=== PATIENT | male | born 1940 | race Caucasian/White ===

== ENCOUNTER 2017-01-11 12:02 | Emergency (ER) | payer OTHER ==
[2017-01-11 12:15] VITALS: RESP 16
--- NOTE | 2017-01-11 12:35 | CPEKG ---
Heart Rate: 62 RR Interval: 968 P-R Interval: 168 QRSD Interval: 100 QT Interval: 388 QTC Interval: 394 P [place]: 84 QRS [place]: 19 T Wave [place]: 12 EKG Severity - NORMAL ECG - EKG Impression: SINUS RHYTHM Electronically Signed By: Dalia Mg 11-Jan-2017 15:03:27
[2017-01-11] MEDS ORDERED: IPRATROPIUM/ALBUTEROL 3 ML DEYVIAL IH ONE (12:40)
--- NOTE | 2017-01-11 12:42 | EDPHY ---
H & P Stated Complaint: URI sxs;recent travel to [facility]. [place]rived back in [place] yesterday Time Seen by Provider: 01/11/17 12:09 HPI/ROS: CHIEF COMPLAINT: Cough, dyspnea HISTORY OF PRESENT ILLNESS: The patient is a 76 y/o male arriving with his from his PCP's office complaining of a cough, dyspnea, and fatigue for the last two weeks. He has been in [place] for the last month and reports he is up-to-date on travel vaccinations. He initially noticed fatigue and dyspnea and eventually developed a productive cough with yellow sputum. He took a course of what sounds like azithromycin, which improved his symptoms for awhile, but he started to feel poor again about 3 days ago when he began to develop a productive cough again. He returned to [place] yesterday after 58 hours of travel. He was evaluated by his PCP this morning, who referred him to the ED for continuing dyspnea and cough. Associated with subjective fever. He denies prior history of pneumonia and is a nonsmoker. He also notes he's had a 20-pound weight loss since starting his trip in [facility], which he attributes to extreme exercise and minimal food availability. He denies decreased appetite. REVIEW OF SYSTEMS: Eyes: No visual changes ENT: No sore throat Respiratory: See HPI Cardiac: No chest pain Gastrointestinal: No nausea, no vomiting, no abdominal pain Genitourinary: No hematuria, no dysuria Musculoskeletal: No leg pain or swelling Skin: No rash Neurological: No headache, no numbness, no weakness Psychiatric: No depression - Personal History Current Tetanus Diphtheria and Acellular Pertussis (TDAP): Yes - Medical/Surgical History PMH: Denies. Hx Asthma: No Hx Chronic Respiratory Disease: No Hx Diabetes: No Hx Cardiac Disease: No Hx Renal Disease: No Hx Cirrhosis: No Hx Alcoholism: No Hx HIV/AIDS: No Hx Splenectomy or Spleen Trauma: No Other PMH: retinal sx, APPY - Social History Smoking Status: Never smoked Additional Social History: at bedside. Nonsmoker. Recently returned from 4-week trip in [facility]. - Physical Exam Exam: General Appearance: Alert, nontoxic-appearing Eyes: Pupils equal and round, no conjunctival pallor or injection ENT, Mouth: Mucous membranes moist Neck: Normal inspection Respiratory: Left upper lung field-end inspiratory wheezing Cardiovascular: Regular rate and rhythm Gastrointestinal: Abdomen is soft and non- tender Neurological: A&O, nonfocal, normal gait Skin: Warm and dry, no rash Extremities: Nontender, no pedal edema Psychiatric: Mood and affect normal Constitutional: Initial Vital Signs Temperature (C) 37 C 01/11/17 12:12 Heart Rate 66 01/11/17 12:12 Respiratory Rate 16 01/11/17 12:12 Blood Pressure 131/73 H 01/11/17 12:12 O2 Sat (%) 99 01/11/17 12:12 O2 Delivery Mode Room Air Allergies/Adverse Reactions: No Known Allergies Allergy (Verified 01/11/17 12:11) Home Medications: Medication Instructions Recorded levOFLOXACIN [levAQUIN (*)] 750 mg PO DAILY #10 tab 01/11/17 Medical Decision Making - Diagnostics Imaging Results: Chest x-ray independently reviewed by me reveals a right lower lobe infiltrate. CT pulmonary angiogram read by the radiologist reveals multifocal pneumonia. No evidence of pulmonary embolism. Imaging: Discussed imaging studies w/ call or contact centre operator Radiologist, I viewed and interpreted images myself ED Course/Re-evaluation: This is a 76 y/o male with no documented health conditions who presents with a 2 -week history of dyspnea, cough, and fatigue that began while traveling in [place]. His symptoms temporarily improved with azithromycin, but have returned over the last 3 days. He has left upper lobe wheezes on exam, but otherwise has no remarkable findings. His vitals are WNL. Plan for IV, labs, EKG, and chest x- ray. Duo neb administered. Chest x-ray shows RLL infiltrate. Due to recent travel and SOB, D-dimer ordered. D-dimer is elevated. I've recommended a chest CTA to evaluate for PE. He agrees to this imaging. CT pulmonary angiogram read by Dr. Jones reveals no evidence of pulmonary embolism. Multi focal pneumonia present. Discussed with the patient and the patient's . He would like to go home. O2 sat 94% on RA and VS normal. I feel that he is appropriate patient for outpatient treatment of pneumonia. He will be discharged home on Levaquin with standard pneumonia care instructions. Recommended followup with his PCP for unimproved symptoms over the next week. Return precautions given. He is comfortable with this plan. Differential Diagnosis: Differential diagnosis includes though it is not limited to pneumonia, pneumothorax, pulmonary embolism, aortic dissection, pericarditis, severe sepsis. - Data Points Laboratory Results: Laboratory Results 01/11/17 12:45 01/11/17 12:45 Medications Given: Discontinued Medications Albuterol/Ipratropium (Duoneb) 3 ml IH EDNOW ONE Stop: 01/11/17 12:41 Last Admin: 01/11/17 12:44 Dose: 3 ml Levofloxacin (Levaquin) 750 mg PO EDNOW ONE PRN Reason: Protocol Stop: 01/11/17 15:16 Last Admin: 01/11/17 15:22 Dose: 750 mg Departure - Departure Disposition: Home, Routine, Self-Care Clinical Impression: Pneumonia Qualifiers: Pneumonia type: due to unspecified organism Laterality: bilateral Lung location : unspecified part of lung Qualified Code(s): J18.9 - Pneumonia, unspecified organism Condition: Good Instructions: Levofloxacin (By mouth), Pneumonia (ED) Additional Instructions: 1. Take Levaquin as prescribed. Be sure to use entire prescription even if you feel better. Do not perform strenuous exercise while on this medication as it can cause tendon injury. 2. Use 650mg Tylenol every 4-6 hours as needed for fever or pain over the next few days. 3. Follow up with your primary care provider for unimproved symptoms over the next week. 4. Return to the ED for severe pain, worsening shortness of breath, uncontrollable fever, or other worsening of condition. Referrals: Pancho Green MD [Primary Care Provider] - As per Instructions Prescriptions: levOFLOXACIN [levAQUIN (*)] 750 mg PO DAILY #10 tab Report Scribed for: Dalia Mg Report Scribed by: Kathleen Ponce Date of Report: 01/11/17 Time of Report: 12:43 Physician Review and Approval Statement: 01/11/17 12:43 Portions of this note were transcribed by a medical collections representative. I personally performed a history, physical exam, medical decision making, and confirmed accuracy of information the transcribed note.
[2017-01-11 13:12] LABS: % IMMATURE GRANULYOCYTES 0.3 % (0.0-1.1); ABSOLUTE IMMATURE GRANULOCYTES 0.03 10^3/uL (0.00-0.10); ADD DIFF? NO; ADD MORPH? NO; ADD SCAN? NO; ATYPICAL LYMPHOCYTE FLAG 20 (0-99); FRAGMENT RBC FLAG 0 (0-99); HEMATOCRIT 40.5 % (40.0-51.0); HEMOGLOBIN 13.6 g/dL (13.7-17.5); LEFT SHIFT FLG 10 (0-99); LIPEMIA HEMOLYSIS FLAG 80 (0-99); MEAN CELL HEMOGLOBIN 29.6 pg (27.9-34.1); MEAN CELL HEMOGLOBIN CONCENTR. 33.6 g/dL (32.4-36.7); MEAN CELL VOLUME 88.2 fL (81.5-99.8); MEAN PLATELET VOLUME 10.8 fL (8.7-11.7); PLATELET CLUMPS FLAG 0 (0-99); PLATELET COUNT 243 10^3/uL (150-400); RED BLOOD CELL COUNT 4.59 10^6/uL (4.40-6.38); RED CELL DISTRIBUTION WIDTH 13.4 % (11.5-15.2)
[2017-01-11 13:22] LABS: INR 1.12 (0.83-1.16); PROTIME(PATIENT) 14.3 SEC (12.0-15.0)
[2017-01-11 13:23] LABS: APTT 26.9 SEC (23.0-38.0)
[2017-01-11 13:50] LABS: ANION GAP 14 mEq/L (8-16); BILIRUBIN,TOTAL 0.7 mg/dL (0.1-1.4); CALCIUM 8.9 mg/dL (8.5-10.4); CARBON DIOXIDE 21 mEq/l (22-31); CHLORIDE 103 mEq/L (97-110); GLOMERULAR FILTRATION RATE > 60; GLUCOSE 85 mg/dL (70-100); POTASSIUM 4.1 mEq/L (3.5-5.2); SODIUM 138 mEq/L (134-144)
[2017-01-11] MEDS ORDERED: IOPAMIDOL (ISOVUE 370) 100 ML BTL IV ONE (14:27)
[2017-01-11 15:37] VITALS: BP 114/59; PULSE 71; TEMP 99.7; O2SAT 94
== END 2017-01-11 15:35 | disposition home or self-care (01) ==
DX: J18.9 Pneumonia, unspecified organism (principal)
CPT/HCPCS: 71020; 71275; 93005; 99285; Q9967

== ENCOUNTER → 2017-05-06 | Outpatient (CLI) | payer OTHER | LOC: FIMAGING 09:52 | PROVIDERS: ATTEND Internal Medicine Pulmonary Disease | DX: J18.9 Pneumonia, unspecified organism (principal); J21.9 Acute bronchiolitis, unspecified; I25.10 Atherosclerotic heart disease of native coronary artery without angina pectoris ==

== ENCOUNTER 2018-06-27 06:32 | Day surgery (SDC) | payer OTHER ==
[2018-06-27] MEDS ORDERED: NS 1,000 ML IV ONE (06:39)
[2018-06-27] MEDS ORDERED: diphenhydrAMINE 25 MG CAP PO ONE ×2 (06:39→06:54)
[2018-06-27] MEDS ORDERED: ASPIRIN EC 325 MG TAB PO ONE ×2 (06:39→06:54)
[2018-06-27] MEDS ORDERED: DIAZEPAM 5 MG TAB PO ONE (06:39)
[2018-06-27] MEDS ORDERED: FAMOTIDINE 20 MG TAB PO ONE (06:39)
[2018-06-27] MEDS ORDERED: DIAZEPAM 5 MG TAB ONE (06:54)
[2018-06-27] MEDS ORDERED: FAMOTIDINE 20 MG TAB ONE (06:54)
[2018-06-27 07:26] LABS: PLATELET COUNT 232 10^3/uL (150-400)
[2018-06-27 07:45] LABS: INR 0.99 (0.83-1.16); PROTIME(PATIENT) 13.3 SEC (12.0-15.0)
[2018-06-27] MEDS ORDERED: LIDOCAINE 1% 300 MG/30 ML SDV ONE (07:45)
[2018-06-27] MEDS ORDERED: fentaNYL 100 MCG/2 ML INJ ONE (07:46)
[2018-06-27] MEDS ORDERED: MIDAZOLAM 2 MG/2 ML VIAL ONE (07:46)
[2018-06-27] MEDS ORDERED: IOPAMIDOL (ISOVUE-370) 150 ML BTL IV ONE (07:47)
--- NOTE | 2018-06-27 08:36 | PDHPUP ---
History & Physical Update H&P update statement: This history and physical update is based on an assessment of the patient which was completed after admission or registration (within 24 hours), but prior to the surgery/procedure. H&P update: H&P reviewed & patient examined, no change in patient's condition since H&P completed
--- NOTE | 2018-06-27 08:36 | PDPROPOC ---
Sedation Plan of Care Sedation Plan of Care: vital signs stable, mental status noted, patient educated of risks, benefits, alternatives, patient can tolerate sedation ASA Classification: ASA 2 Planned drugs: fentanyl, midazolam Mallampati Score: Class 2 Mallampati Reference Image: Patient passed 3-3-2 rule?: Yes
--- NOTE | 2018-06-27 10:10 | CPIP ---
DATE OF PROCEDURE: 06/27/2018 PROCEDURE: 1. Coronary angiography. 2. Left ventriculography. INDICATION: 1. Nonsustained ventricular tachycardia on stress testing number. 2. Dyspnea on exertion concerning for an anginal equivalent. ACCESS: Patient was prepped and draped in sterile fashion. 1% lidocaine was used to anesthetize the right inguinal region. A 6-Samoan introducer sheath was placed selectively into the right common fe moral artery via modified Seldinger technique. CORONARY ANGIOGRAPHY: A 6-Samoan JL4 was advanced to left main coronary artery and images obtained. The left main coronary artery bifurcated into an LAD and circumflex coronary arteries. The left mikael n coronary artery appeared normal. The left anterior descending coronary artery is diffusely disease d in the proximal mid segments. There was no stenosis greater than 20%. In the distal left anterior descending coronary artery, there was a single discrete total occlusion. The distal vessel is being collateralized via right to left collaterals. The left anterior descending coronary artery gave ris e to 3 diagonal branches. There is no significant disease involving the diagonal branches. The circ umflex coronary artery is a large vessel, but is nondominant. Circumflex coronary artery has a singl e discrete 50% to 60% stenosis in the mid vessel. A 6-Samoan JR4 was advanced to the right coronary artery and images obtained. The right coronary artery is dominant. The right coronary artery has a single discrete 70% stenosis in the midvessel. LEFT VENTRICULOGRAPHY: A 6-Samoan pigtail catheter was advanced in the left ventricle and images obt ained. Left ventricle was normal in size, had normal systolic function. Estimated ejection fraction 65%. COMPLICATIONS: None. CONCLUSIONS: 1. Three-vessel coronary artery disease. 2. Normal left ventricular systolic function. 3. Plan is for surgical evaluation. /[id number]/MODL
--- NOTE | 2018-06-27 16:25 | CPEKG ---
Test Reason : OPEN Blood Pressure : / mmHG Vent. Rate : 062 BPM Atrial Rate : 061 BPM P-R Int : 169 ms QRS Dur : 105 ms QT Int : 425 ms P-R-T Axes : 083 020 -16 degrees QTc Int : 432 ms Sinus rhythm Abnormal R-wave progression, early transition Borderline T abnormalities, inferior leads Confirmed by Elizabeth Gusman ([id number]) on 06/27/2018 4:24:52 PM Referred By: Confirmed By:Elizabeth Gusman
== END 2018-06-27 12:58 | disposition home or self-care (01) ==
LOC: FCATH 06:32
PROVIDERS: ATTEND Internal Medicine Cardiovascular Disease
PROC: B2111ZZ Fluoroscopy of Multiple Coronary Arteries using Low Osmolar Contrast (ICD-10-PCS; principal; 2018-06-27)
PROC: 4A023N7 Measurement of Cardiac Sampling and Pressure, Left Heart, Percutaneous Approach (ICD-10-PCS; principal; 2018-06-27)
PROC: B2151ZZ Fluoroscopy of Left Heart using Low Osmolar Contrast (ICD-10-PCS; principal; 2018-06-27)
DX: I25.10 Atherosclerotic heart disease of native coronary artery without angina pectoris (principal)
CPT/HCPCS: C1760; J1644; J2250; J3010; Q9967

== ENCOUNTER 2018-08-11 11:46 | Observation (INO) | payer OTHER ==
[2018-08-11] MEDS ORDERED: ASPIRIN 81 MG CHEWABLE TAB PO ONE (12:17)
[2018-08-11] MEDS ORDERED: IOPAMIDOL (ISOVUE 370) 100 ML BTL IV ONE (13:03)
[2018-08-11] MEDS ORDERED: NITROGLYCERIN 2% 1 GM PACKET TP ONE (13:52)
[2018-08-11] MEDS ORDERED: FUROSEMIDE 20 MG/2 ML VIAL IVP ONE (13:52)
--- NOTE | 2018-08-11 15:02 | EDPHY ---
H & P Stated Complaint: bilateral leg swelling 5th, recent travel to [facility] Time Seen by Provider: 08/11/18 11:50 HPI/ROS: This patient reports a 3 week history of dyspnea since starting beta-blockers- initially Coreg, changed after few days to Bystolic due to dyspnea and Coreg. However, he reports that the symptoms have steadily worsened despite the change in medications. He traveled to [facility] since starting the beta-daja and on return ride back from [facility] 2 days ago noticed bilateral leg edema that was new for him. He reports this is quite significant in terms of the bilateral leg swelling but improved when he propped his legs up on pillows overnight only to recur once he stood up again. In the past, Despite prolonged travel the past he never had significant leg edema. He also reported increase in the dyspnea at baseline. He also reports worsening of dyspnea on exertion including in recent days mild exertion such as walking up stairs which is normally of no difficulty to this patient. He presented to Dr. Macedo cardiology office this morning with the symptoms and was encouraged to check in the emergency department for further evaluation. ROS: Constitutional: No fevers or chills. He denies significant fatigue despite the edema. HEENT: No complaints Pulmonary: Dyspnea as per HPI. No significant coughing. Cardiovascular: Denies any heart palpitations. No chest pain. No paroxysmal nocturnal dyspnea. Significant reduction exercise tolerance with dyspnea on exertion as noted in HPI. While he has bilateral leg swelling he denies any discomfort in the left leg. He does report mild right medial thigh discomfort over the past 24 hr. He attributes this to heavy lifting of luggage over the past 2 weeks from travel. GI: No nausea. No abdominal pain. No dark tarry stools or bloody stools. : No complaints Integumentary: No diaphoresis or pallor Neuro: No complaints 10 point review of symptoms is performed and otherwise negative with exception of pertinent positives and negatives listed in HPI and ROS Source: Patient Exam Limitations: No limitations - Medical/Surgical History Hx Asthma: No Hx Chronic Respiratory Disease: No Hx Diabetes: No Hx Cardiac Disease: No Hx Renal Disease: No Hx Cirrhosis: No Hx Alcoholism: No Hx HIV/AIDS: No Hx Splenectomy or Spleen Trauma: No Other PMH: cardiac murmur, retinal sx, APPY - Social History Smoking Status: Never smoked Alcohol Use: Occasionally Drug Use: None Additional Social History: Just return from travel to [facility] - Physical Exam Exam: General Appearance: Alert, no distress. Eyes: Pupils equal and round no pallor or injection. ENT, Mouth: Mucous membranes moist. Respiratory: Diminished breath sounds at the bases bilaterally. No rales or rhonchi appreciated. Cardiovascular: Regular rate and rhythm. No murmur gallop or rub is appreciated. Minimal JVD is present. He has 1 to 2+ pitting edema bilateral lower extremities. Gastrointestinal: Abdomen is soft and nontender, no masses, bowel sounds normal. Neurological: GCS 15 with no focal deficits. Skin: Warm and dry, no rashes. Musculoskeletal: Neck is supple nontender. Extremities are symmetrical, full range of motion. Psychiatric: Mood and affect are normal. DIFFERENTIAL DIAGNOSIS: After history and physical exam differential diagnosis was considered for CHF, DVT, pulmonary embolism, myocardial ischemic disease, metabolic disarray, UTI, renal failure Constitutional: Initial Vital Signs Temperature (C) 36.2 C 08/11/18 11:57 Heart Rate 45 L 08/11/18 11:57 Respiratory Rate 16 08/11/18 11:57 Blood Pressure 142/67 H 08/11/18 11:57 O2 Sat (%) 95 08/11/18 11:57 O2 Delivery Mode Room Air O2 (L/minute) 2 Allergies/Adverse Reactions: No Known Allergies Allergy (Verified 08/11/18 11:57) Home Medications: Medication Instructions Recorded Aspirin 81 mg PO DAILY 06/27/18 Atorvastatin Calcium 20 mg PO 06/27/18 Calcium 600 mg PO DAILY 06/27/18 Fish Oil [place]-3 Softgel 2 tab PO DAILY 06/27/18 Multivitamin 1 tab PO DAILY 06/27/18 Tobramycin 0.3% 1 drops LEFTEYE Q4 PRN 06/27/18 Vitamin D3 2,000 iunits PO DAILY 06/27/18 Bystolic 08/11/18 Medical Decision Making - Diagnostics EKG Interpretation: 12 lead EKG performed at 12 indication dyspnea rule out coronary syndrome or other Sinus bradycardia 43 Intervals: Normal throughout [place]: P of 84, QRS of 23, T of -1 ST segments: No acute ST abnormalities appreciated. Overall assessment sinus bradycardia with 1 PVC and early transition in R-wave progression anteriorly. Imaging Results: Imaging Impressions Chest/Thorax CTA 08/11/18 12:56 Impression: 1. There is no CT evidence of pulmonary artery thromboembolic disease. 2. Moderate right and small left pleural effusions. 3. Lingular and right middle lobe bronchiectasis, with some areas of mucous plugging and some mild chronic atelectasis. There is also some more focal "tree- in-bud" nodularity (for example, in the medial lingula), which may reflect SHERIN ( although is nonspecific). 4. Old granulomatous disease of the spleen. 5. Cardiomegaly with LAD and RCA atherosclerotic calcific plaque. Findings were discussed with PHILLIP LEON MD at 13:47, on 08/11/2018. Extremity Venous Study 08/11/18 13:52 Impression: No deep venous thrombosis right leg. Findings and recommendations discussed with Emergency Department physician, PHILLIP LEON at 14:52 hour, 08/11/2018. Final report concurs with initial preliminary interpretation. Imaging: Discussed imaging studies w/ call box wirer Radiologist ED Course/Re-evaluation: IV, monitor Aspirin [address] results consistent with clinical impression of CHF, patient treated with IV Lasix 20 mg and nitroglycerin paste with brisk diuresis. Studies: CBC is normal, basic metabolic panel is normal, troponin is normal, D- dimer was mildly elevated. His BNP is elevated greater than 1800. I spoke with Dr. Macedo, slab stripper who is familiar with this patient's most recent cardiac catheterization which showed multi vessel coronary artery disease including a significant LAD lesion. Given this background coronary disease with new onset CHF we feel the patient warrants admission. The patient is in agreement with this plan. I also spoke with Dr. Luo, the patient's personal slab stripper who also agrees with the plan will consult, requesting hospitalist as primary admitting physician. I spoke with Dr. Adi Santos, hospitalist accepts the patient for admission to [facility]. - Data Points Laboratory Results: 08/11/18 08/11/18 08/11/18 12:12 12:12 12:02 POC Sodium 144 mEq/L mEq/L (135-145) POC Potassium 3.5 mEq/L mEq/L (3.3-5.0) POC Chloride 107.0 mEq/L mEq/L (97-110) POC Total CO2 26 mEq/L mEq/L (22-31) POC BUN 13 mg/dL mg/dL (7-23) POC Creatinine 0.7 mg/dL mg/dL (0.7-1.3) POC Glucose 82 mg/dL mg/dL (70-100) POC Calcium 9.2 mg/dL mg/dL (8.5-10.4) POC Troponin I 0.02 ng/mL ng/mL (0.00-0.08) NT-Pro-B Natriuret Pep 1850 pg/mL H pg/mL (0-450) Medications Given: Discontinued Medications Aspirin (Aspirin) 324 mg PO EDNOW ONE Stop: 08/11/18 12:18 Last Admin: 08/11/18 12:24 Dose: 324 mg Furosemide (Lasix Injection) 20 mg IVP EDNOW ONE Stop: 08/11/18 13:53 Last Admin: 08/11/18 14:02 Dose: 20 mg Nitroglycerin (Nitro-Bid 2%) 0.5 inch TP EDNOW ONE Stop: 08/11/18 13:53 Last Admin: 08/11/18 14:02 Dose: 0.5 inch Point of Care Test Results: CBC CBC Collection Date 08/11/18 CBC Collection Time 12:02 WBC 6.03 RBC 4.73 HGB 13.7 HCT 43.4 PLT 179 Neut # 4.03 Neut 66.7 LYMPH # 1.09 LYMPH 18.1 MCV 91.8 Chemistry 08/11/18 08/11/18 12:12 12:12 POC Sodium 144 mEq/L mEq/L (135-145) POC Potassium 3.5 mEq/L mEq/L (3.3-5.0) POC Chloride 107.0 mEq/L mEq/L (97-110) POC Total CO2 26 mEq/L mEq/L (22-31) POC BUN 13 mg/dL mg/dL (7-23) POC Creatinine 0.7 mg/dL mg/dL (0.7-1.3) POC Glucose 82 mg/dL mg/dL (70-100) POC Calcium 9.2 mg/dL mg/dL (8.5-10.4) POC Troponin I 0.02 ng/mL ng/mL (0.00-0.08) D-Dimer D-Dimer Collection Date 08/11/18 D-Dimer Collection Time 12:02 D-Dimer (ng/ml) 489 Departure - Departure Disposition: [facility] Inpatient Acute Clinical Impression: New onset of congestive heart failure Condition: Fair Referrals: Pancho Green MD [Primary Care Provider] - As per Instructions
[2018-08-11] MEDS ORDERED: ONDANSETRON DISINTEGRATING 4 MG TAB PO PRN (15:32)
[2018-08-11] MEDS ORDERED: ACETAMINOPHEN 325 MG TAB PO PRN (15:32)
[2018-08-11] MEDS ORDERED: ONDANSETRON 4 MG/2 ML VIAL IVP PRN (15:32)
--- NOTE | 2018-08-11 17:51 | PDGENHP ---
History and Physical - Chief Complaint CLARK - History of Present Illness Tae Camarena is a 77 yo M with a hx of CAD who presents to [facility] for CLARK and b/l LE swelling. Patient reports that he has been having worsening CLARK for approximately the last 3 weeks since starting a beta-arben. He follows with Dr. Luo as an outpatient and was originally prescribed Coreg which was then changed to Bystolic after complaining of dyspnea. He denies any significant improvement in CLARK since change in medications. He denies any cough, wheezing, f/c. He notes that he will have SOB with small exertion including walking up stairs which he can normally tolerate. He then traveled to [facility] and returned about 2 days ago when he noticed significant b/l LE edema. He elevated them on pillows overnight with some improvement initally then worsening with standing. He denies any chest pain, d/c, palpitations. He does report some lightheadedness and dizziness. He was seen in Cardiology clinic this morning by Dr. Macedo who recommended patient present to ED. In the PAULA, patient was hemodynamically stable with HR in the 40's. CTA chest was performed due to elevated d-dimer and recent travel hx which showed b/l pleural effusions. Patient was given 20 mg IVP Lasix in ED. History Information - Allergies/Home Medication List Allergies/Adverse Reactions: No Known Allergies Allergy (Verified 08/11/18 11:57) Home Medications: Aspirin 81 mg PO DAILY 06/27/18 [Last Taken 06/26/18 08:00] Atorvastatin Calcium 20 mg PO 06/27/18 [Last Taken Unknown] Calcium 600 mg PO DAILY 06/27/18 [Last Taken 06/26/18 08:00] Fish Oil [place]-3 Softgel 2 tab PO DAILY 06/27/18 [Last Taken 06/26/18 08:00] Multivitamin 1 tab PO DAILY 06/27/18 [Last Taken 06/26/18 08:00] Tobramycin 0.3% 1 drops LEFTEYE Q4 PRN 06/27/18 [Last Taken 06/19/18 08:00] Vitamin D3 2,000 iunits PO DAILY 06/27/18 [Last Taken 06/26/18 08:00] Bystolic 08/11/18 [Last Taken Unknown] I have personally reviewed and updated: family history, medical history, social history, surgical history - Past Medical History coronary artery disease - Surgical History Reports: no pertinent surgical hx - Family History Positive for: non-pertinent - Social History Smoking Status: Never smoked Alcohol Use: Occasionally Drug Use: None Review of Systems Review of Systems: ROS: 10pt was reviewed & negative except for what was stated in HPI & below Physical Exam Physical Exam: Temp Pulse Resp BP Pulse Ox 36.4 C 48 L 15 97/71 L 96 08/11/18 14:44 08/11/18 17:19 08/11/18 17:19 08/11/18 17:19 08/11/18 17:19 Constitutional: no apparent distress Eyes: PERRL Ears, Nose, Mouth, Throat: moist mucous membranes Cardiovascular: regular rate and rhythym Respiratory: no respiratory distress, inspiratory crackles Gastrointestinal: soft, non-tender abdomen Musculoskeletal: full muscle strength Neurologic: AAOx3 Psychiatric: interacting appropriately Lab Data & Imaging Review POC Sodium 144 mEq/L (135-145) 08/11/18 12:12 POC Potassium 3.5 mEq/L (3.3-5.0) 08/11/18 12:12 POC Chloride 107.0 mEq/L (97-110) 08/11/18 12:12 POC Total CO2 26 mEq/L (22-31) 08/11/18 12:12 POC BUN 13 mg/dL (7-23) 08/11/18 12:12 POC Creatinine 0.7 mg/dL (0.7-1.3) 08/11/18 12:12 POC Glucose 82 mg/dL (70-100) 08/11/18 12:12 POC Calcium 9.2 mg/dL (8.5-10.4) 08/11/18 12:12 POC Troponin I 0.02 ng/mL (0.00-0.08) 08/11/18 12:12 NT-Pro-B Natriuret Pep 1850 pg/mL (0-450) H 08/11/18 12:02 Assessment & Plan Assessment: Acute Congestive Heart Failure Exacerbation - Reports 3 weeks CLARK, recent b/l LE edema with hx of multivessel CAD - BNP elevated to 1850, CTA showing b/l pleural effsions R>L on admission, cardiomegaly - S/p 20 mg IVP Lasix in ED, will continue 20 mg Lasix IVP BID - No TTE seen in [employer], will order - Recently started on B-Arben, initially Coreg then Bystolic, will hold for now - Monitor I/O, daily weights, BMP - Cardiology consult in the AM, follows with Dr. Luo as outpatient Multivessel CAD -Recent LHC on 06/27/2018 showing multivessel disease, medical management per patient - Not currently complaining of chest pain, Trop negative on admission - Continue home ASA, Atorvastatin Bradycardia - HR noted to be in 40's on admission, 60-70's on previous ED visits - Recently started on B-arben by Cardiology, will hold for now, cards consulted as above - Monitor on telemetry Bronchiectasis - Seen on CTA on admission, possibly represented SHERIN per radiology read, also noted in 2015 on CTA - Unclear if playing a role in recent CLARK, unlikely given CHF exacerbation as above - Follows with pulmonology as outpatient, has appointment next Wednesday FEN: Cardiac Diet, 1.5 L Fluid restriction DVT PPx: SubQ Lovenox Code: FULL Dispo: Admit to Medicine
[2018-08-11] MEDS ORDERED: TOBRAMYCIN 0.3% 5 ML OPHT.BTL OP PRN (22:55)
[2018-08-12 04:53] LABS: PLATELET COUNT 160 10^3/uL (150-400)
--- NOTE | 2018-08-12 07:03 | CPEKG ---
Test Reason : OPEN Blood Pressure : / mmHG Vent. Rate : 043 BPM Atrial Rate : 045 BPM P-R Int : 182 ms QRS Dur : 101 ms QT Int : 467 ms P-R-T Axes : 084 023 -01 degrees QTc Int : 395 ms Sinus bradycardia Ventricular premature complex Abnormal R-wave progression, early transition Confirmed by Jaun Queen ([id number]) on 08/12/2018 7:03:26 AM Referred By: Jaun Queen Confirmed By:Jaun Queen
[2018-08-12] MEDS: ASPIRIN EC 81 MG TAB PO SCH (08:08)
[2018-08-12] MEDS: ENOXAPARIN 40 MG/0.4 ML SYR SC SCH (08:08)
[2018-08-12] MEDS: ATORVASTATIN CALCIUM 20 MG TAB PO SCH (08:08)
--- NOTE | 2018-08-12 10:35 | ECHO ---
[email or web address] [address] Main: [phone] Echocardiography Examination Transthoracic Name: LISA YI MR#: Study Date: 08/12/2018 Study Time: 08:33 AM Date of : 1940 Age: 77 year(s) Height: 182.9 cm (72 in.) Weight: 72.58 kg (160 lb.) BSA: 1.94 m2 Gender: Male Examination: Echo Indication: CHF Image Quality: Adequate Contrast: Requested by: Adi Santos BP: 119 mmHg/69 mmHg Heart Rate: 54 bpm Rhythm: Indication: CHF Procedure Staff Referring Physician: Family Life Educator: Irene Cummins [facility] Reading Physician: Lexa Pleitez MD Requesting Provider: Ordering Physician: Adi Santos Indication: CHF Measurements Chambers AV/MV Label Value Normal Value Label Value Normal Value IVSd, 2D 1.2 cm (0.6cm - 1.1cm) AV PGmax 7 mmHg LVDd, 2D 4.4 cm (4.2cm - 5.9cm) AV Vmax, Caliper 1.36 m/s LVDs, 2D 2.7 cm (2.1cm - 4cm) JOSÉ D (continuity eq. 2.8 cm2 LVEF, 2D 69 % (54% - 74%) Vmax) LVEF, BP 70 % (55% - 70%) MR Vena Contracta 0.4 cm LVEF, MOD2 68 % (55% - 70%) MV A Vmax 0.43 m/s LVEF, MOD4 69 % (55% - 70%) MV DT 180 ms LVOT PGmax 4 mmHg MV E' lateral 0.08 m/s LVOT Vmax 0.99 m/s (0.7m/s - 1.1m/s) MV E' mean 0.08 m/s LVOTd 2.2 cm (1.9cm - 2.1cm) MV E' septal 0.08 m/s LVPWd, 2D 0.8 cm (0.6cm - 1cm) MV E Vmax 0.8 m/s RVDd, 2D 3.9 cm (1.9cm - 3.8cm) MV E/A 1.86 TAPSE 2.1 cm MV E/E' lateral 10 LADs, 2D 3.8 cm (3cm - 4cm) MV E/E' mean 10 LAESV index, MOD2 39.2 ml/m2 MV E/E' septal 10.5 (0.45 - 1.25) RA Area 25 cm2 TV/PV Additional Vessels Label Value Normal Value Label Value Normal Value RA Pressure 15 mmHg Patient: LISA YI MRN: Study Date: 08/12/2018 Page 1 of 3 08:33 AM AoAsc 2.9 cm RVSP 40 mmHg AoRoot, 2D 3 cm (1.4cm - 2.6cm) TR Pmax 25 mmHg TR Vmax 2.52 m/s PV PGmax 3 mmHg PV Vmax, Caliper 0.87 m/s (0.6m/s - 0.9m/s) Conclusions The rhythm is sinus bradycardia with frequent PVCs. Normal left ventricular size and systolic function. LVEF estimated at 60-65% and calculated at 70% by Shepherd's. Normal left ventricular free wall thickness. No ischemic appearing wall motion abnormalities. Mild left atrial enlargement. Moderate right atrial enlargement. RV size measures at the upper limits of normal. The interventricular septum is "D"shaped in diastasis leak consistent with right ventricular pressure overload. Normal-appearing valvular structures. Mild mitral regurgitation. [id number] tricuspid regurgitation. The estimated RVSP is moderately elevated at 40 mmHg. There is a trivial pericardial effusion. Findings Left Ventricle: The rhythm is sinus bradycardia with a first-degree AV block and occasional PVCs. Left ventricle is normal in size. Normal global systolic left ventricular function. Left ventricle wall thickness is normal. There is no regional wall motion abnormalities. Left ventricular diastolic function parameters are normal. IVS: The septum is intact. Right Ventricle: Upper normal size right ventricle. Right ventricular wall thickness is normal. Right ventricular systolic function is normal. Flattened interventricular septum consistent with right ventricular pressure and/or volume overload free wall. Left Atrium: The left atrium is mildly dilated. IAS: Normal appearing atrial septum. Right Atrium: The right atrium is moderately dilated. Mitral Valve: Mitral valve appears structurally normal. Mild mitral regurgitation. No mitral valve stenosis. There is mitral thickening. Aortic Valve: Aortic leaflets exhibit normal cuspal separation. No aortic valve regurgitation. There is no aortic stenosis. The aortic valve is trileaflet. Tricuspid Valve: Tricuspid valve leaflets are normal in appearance and function. Mild to moderate tricuspid regurgitation. No tricuspid valve stenosis. Right Ventricular systolic pressure is measured at 40 mmHg. Pulmonary artery pressure is mildly increased. Pulmonic Valve: Pulmonic leaflets exhibit normal cuspal separation. Mild pulmonic valve regurgitation is present. There is no pulmonic valve stenosis. Aorta: The aorta is normal. The aortic root size in 2D measures 3.0 cm. The aortic root exhibits normal size. The ascending aorta measures 2.9 cm. Ascending aorta is normal in size. Aorta Measurements AoRoot, 2D is 3.0 cm. IVC: The inferior vena cava is dilated. Respirophasic changes are blunted (less than 50% variation). Pericardium: Trivial pericardial effusion. Exam Details Patient: LISA YI MRN: Study Date: 08/12/2018 Page 2 of 3 08:33 AM Procedure Ordered: Echo Procedure Status: Routine study Image Quality: Adequate Facility Location: Cardiac Echo 1 (No Signature Object) Patient: LISA YI MRN: Study Date: 08/12/2018 Page 3 of 3 08:33 AM [id number]
[2018-08-12] MEDS: FUROSEMIDE 20 MG/2 ML VIAL IVP SCH ×2 (11:00→15:21)
--- NOTE | 2018-08-12 14:14 | GHP ---
[f rep st] HISTORY AND PHYSICAL DATE OF ADMISSION: 08/11/2018 CHIEF COMPLAINT: We have been asked by Dr. Santos to evaluate Mr. Camarena with shortness of breath and lower extremity edema. HISTORY OF PRESENT ILLNESS: Mr. Camarena is a 77-year-old gentleman with a history of coronary artery d isease who was admitted to the hospital on 08/11/2018 with symptoms of dyspnea on exertion and lower extremity swelling. Patient was in his usual state of health until approximately 2-3 years ago when he was hiking at 18,000 feet. At that time, he developed a pneumonia and was treated with antibiotic s. Since this time he has noted symptoms of dyspnea with higher levels of exertion. In October of 2017, he presented to [facility] for further [facility]. [facility] and systolic function and no significant valvular abnormali ties. The patient was also scheduled for a stress test to further evaluate his condition. The stres s test demonstrated no evidence of ischemia. His Rodríguez treadmill score was 11, placing him at low car diovascular risk. Patient was, however, noted to have frequent PVCs with exertion and was scheduled for a stress echocardiogram. The stress echocardiogram here again demonstrated no evidence of ischem ia. His Rodríguez treadmill score was 11, however, he did have a 6-beat run of ventricular tachycardia an d was scheduled for cardiac catheterization to further evaluate his condition. Coronary angiography w as notable for right chronic total occlusion of the mid to distal left anterior descending coronary a rtery and was being filled by collaterals from the right coronary artery. His circumflex coronary ar tim had a 50% stenosis in the midvessel and his right coronary artery had an intermediate grade lesi on in the distal vessel. Given no evidence of ischemia on stress testing and no symptoms of chest pa in, it was decided to opt for medical therapy. The patient was started on aspirin, atorvastatin, and carvedilol. The patient did not tolerate the Coreg and this was discontinued and he was started on Bystolic. Patient states that he noted symptoms of progressive dyspnea and exercise intolerance sinc e starting the Bystolic. Upon returning home from [facility], he also noted increased lower extremity katey ma. Initially this was improved with elevation of his legs; however, he developed recurrent lower ex tremity edema upon obtaining an upright position. He presented to [facility] on 08/11/2018 for fu rther evaluation and was referred to the emergency department. In the emergency department, he had a D-dimer performed which was mildly elevated. This led to a lower extremity Doppler as well as a CT pulmonary angiogram. The lower extremity Doppler demonstrated no evidence of DVT. The CT pulmonary angiogram demonstrated no evidence of pulmonary embolus. The CT pulmonary angiogram was notable for a moderate right and small left pleural effusion. In addition, patient was noted to have lingular an d right middle lobe bronchiectasis as well as tree in bud nodularity suggestive of SHERIN infection. In the emergency department, patient also had a BNP performed which returned elevated at 1850. His tro ponin was within normal limits. His EKG demonstrated sinus bradycardia with no acute ST or T-wave ch anges. Patient was admitted to the hospital and we are asked to further help in the management of th is patient. Patient denies symptoms of orthopnea and PND. He does report symptoms of dyspnea on exe rtion. No symptoms of palpitations, syncope, or presyncope. No symptoms of chest pain. Patient garcia s report a significant increase in exercise intolerance since starting beta daja therapy. PAST MEDICAL HISTORY: 1. Coronary artery disease. 2. Hyperlipidemia. 3. Bronchiectasis. MEDICATIONS: Please see medicine reconciliation form. SOCIAL HISTORY: Patient is an active gentleman who is . He does not smoke. He denies proble ms with alcohol. FAMILY HISTORY: Noncontributory. REVIEW OF SYSTEMS: 10-point review of systems is negative except as noted in HPI. PHYSICAL EXAMINATION: GENERAL: Patient is resting in bed. He does not appear to be in acute distre ss. VITALS: Temperature is afebrile. Pulse is 51, blood pressure 119/69, respiratory rate is 18, S aO2 is 91% on room air. HEENT: Normocephalic, atraumatic. Extraocular muscles intact. NECK: No J VD. No bruits. LUNGS: Clear to auscultation bilaterally. Diminished breath sounds at the bases bi laterally. CARDIOVASCULAR: Bradycardia, regular rhythm, S1, S2. No murmurs, rubs, or gallops appre ciated. ABDOMEN: Soft, nontender. Normoactive bowel sounds. No hepatosplenomegaly noted. SKIN: No evidence of rashes. EXTREMITIES: Positive lower extremity edema, 1 to 2+. NEURO: Patient is aw eneida, alert, and oriented x3. LABORATORY: White blood cell count is 5.06, hemoglobin is 12.1, hematocrit is 38.1, platelet count i s 160. Sodium is 144, potassium 3.5, chloride 107, CO2 26, BUN 13, creatinine 0.7, troponin within n ormal limits. BNP is elevated at 1850. EKG demonstrates sinus bradycardia, premature ventricular co ntraction, incomplete right bundle branch block. No acute ST or T-wave changes. Echocardiogram demonstrates normal left ventricular size and systolic function. There are no signifi cant valvular abnormalities identified. The right ventricle and right atrium are mildly dilated. Th ere is evidence of RV pressure volume overload with flattening of the interventricular septum. ASSESSMENT AND PLAN: Mr. Camarena is a 77-year-old gentleman with return. 1. Lower extremity edema. The patient presents with a several day history of lower extremity edema following a long plane ride from [place]. There is no evidence of DVT on ultrasound or pulmonary embol ism by CT scan. There is evidence of volume overload on echocardiography with right ventricular and right atrial enlargement. Suspect this is secondary to a combination of factors including immobility from a prolonged plane ride, potential dietary indiscretions while traveling and vasodilator therapy . We will plan on managing patient with diuretic therapy at this time. 2. Dyspnea on exertion. Patient has a several year history of dyspnea on exertion. Patient noted a fairly significant increase in his exercise intolerance and dyspnea following the initiation of beta daja therapy. Echocardiogram demonstrates normal left ventricular size and systolic function. C T pulmonary angiogram demonstrates no evidence of pulmonary emboli but is notable for bilateral pleur al effusions, bronchiectasis, and potential SHERIN infection. We will plan on discontinuing beta blocke r therapy to see if his symptoms improve. I have also consulted Dr. Bean Katz for pulmonary evalu ation. If no obvious explanation for his symptoms is identified, would consider ischemia as outlined below. 3. Coronary artery disease. Patient has known coronary artery disease and is on maximally tolerated medical therapy. Recent stress testing demonstrated no evidence of ischemia and a Rodríguez treadmill sc ore of 11, however, patient was noted to have a chronic total occlusion of his mid to distal left ant erior descending coronary artery as well as an intermediate grade lesion involving his right coronary artery. Would consider revascularization of these territories if his symptoms of dyspnea on exertio n fail to improve. /[id number]/MODL
--- NOTE | 2018-08-12 16:09 | ASMTCMCOM ---
CM Note CM Note Notes: Patient admitted with Acute CHF, CAD, Cardiology consulting. I suspect patient will be able to discharge home with when medically stable. CM will continue to follow should needs arise. Plan: Anticipate independent. Date Signed: 08/12/2018 04:09 PM Electronically Signed By:Geno Perez RN
--- NOTE | 2018-08-12 16:32 | HOSPPROG ---
Hospitalist Progress Note Assessment/Plan: Acute Right sided Congestive Heart Failure Exacerbation - Reports 3 weeks CLARK, recent b/l LE edema with hx of multivessel CAD - BNP elevated to 1850, CTA showing b/l pleural effsions R>L on admission, cardiomegaly - S/p 20 mg IVP Lasix in ED, will continue 20 mg Lasix IVP BID - TTE c/w LVEF 60%, no wall motion abnormalities, RVSP of 40 - Recently started on B-Arben, initially Coreg then Bystolic, will hold for now - Monitor I/O, daily weights, BMP - Cardiology consult in the AM, Dr. Luo following Multivessel CAD -Recent LHC on 06/27/2018 showing multivessel disease, medical management per patient - Not currently complaining of chest pain, Trop negative on admission - Continue home ASA, Atorvastatin - Cards following Bradycardia - HR noted to be in 40's on admission, 60-70's on previous ED visits - Recently started on B-arben by Cardiology, will hold. Off BB - Monitor on telemetry Bronchiectasis - Seen on CTA on admission, possibly represented SHERIN per radiology read, also noted in 2015 on CTA - Unclear if playing a role in recent CLARK, unlikely given CHF exacerbation as above - Bean Katz to see today Non sustained Vtach: not symptomatic -electrolytes are ok -cont tele -cards following -holding BB FEN: Cardiac Diet, 1.5 L Fluid restriction DVT PPx: SubQ Lovenox Code: FULL Dispo: Admit to Medicine Subjective: good diuresises. denies cp or sob. Had 7 beats of non sustained VTach earlier. Objective: Vital Signs Temp Pulse Resp BP Pulse Ox 36.9 C 52 L 18 112/65 93 08/12/18 16:00 08/12/18 16:00 08/12/18 16:00 08/12/18 16:00 08/12/18 16:00 Laboratory Results 08/12/18 03:06 08/12/18 03:06 08/11/18 08/12/18 08/13/18 05:59 05:59 05:59 Intake Total 480 Output Total 1100 2100 Balance -1100 -1620 - Physical Exam Constitutional: no apparent distress Eyes: PERRL, EOMI Ears, Nose, Mouth, Throat: moist mucous membranes, hearing normal Cardiovascular: regular rate and rhythym, No edema Respiratory: no respiratory distress, no rales or rhonchi, clear to auscultation Gastrointestinal: normoactive bowel sounds Skin: warm Neurologic: AAOx3 Psychiatric: interacting appropriately, not anxious, not encephalopathic Lymph, Heme, Immunologic: No petechiae ICD10 Worksheet Patient Problems: Problems Problem Status Onset New onset of congestive heart failure Acute Pneumonia Acute
--- NOTE | 2018-08-12 18:27 | PDCONSULT ---
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 He is well known to me from the office previously, but I have not seen him for over 1 year. He has known bronchiectasis, relatively mild involving primarily the right middle lobe and lingula. Bronchoscopy was done several years ago. Cultures were negative for SHERIN or other organisms. He has little in the way of pulmonary symptoms. He has never had much cough or mucus. In general he has no pulmonary limitations, is quite active, skis at altitude, etc all without shortness of breath. His current CT scan was compared to CT scans from 2017. His bronchiectasis is a little bit worse regarding scarring/focal infiltrate but remains fairly minimal and localized to the lingula and right middle lobe. I do not believe his bronchiectasis is contributing to his current symptoms of shortness of breath or his cardiac issues. He does have new bilateral pleural effusions, right greater than left, secondary to fluid retention/congestive heart failure. Some of this may be salt/dietary/travel related from his recent trip to [place]. Known coronary artery disease is being evaluated. I will be happy to follow him with you during the hospitalization, and will see him again tomorrow. He has an outpatient appointment with me next Wednesday which we likely will defer for a month or two.
[2018-08-12] MEDS ORDERED: traZODone 50 MG TAB PO PRN (21:44)
--- NOTE | 2018-08-13 08:39 | PDCARPN ---
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 ECG without dynamic changes, but given the history, signs, and symptoms, we opted to have acute eval in the ER to rule out DVT/PE. Work up without DVT/PE noted, but BNP elevation (with noted signs) suggestive of acute CHF. [facility] and work up ensued. Diuresis overnight with about 2.5-3 Kg of weight lost overnight. Pulmonary saw patient yesterday (knows patient from outpatient ) and reportedly has some plans for testing today. Ongoing discussions about medical therapy (vs PCI/CT surgery) for the noted CAD. Given bradycardia that was noted, Bystolic was held. Plan: (1) Would continue therapy on ASA given noted CAD (2) Statins should continue with both HLP history as well as CAD (3) IV diuresis to continue as at present (4) Ambulation (as tolerated) today - would use this as a metric for the patient to determine if there has been any improvement in symptoms noted with diuresis that has been performed (5) Pulmonary to see patient today as well (6) Monitor electrolytes (given the IV diuresis) (7) Maintain Lovenox (patient with risks for DVT while in house) Subjective: Patient is reportedly feeling better today, but has not ambulated to determine if symptoms with minimal exertion are improved Reviewed/Discussed With: family Objective: Vital Signs (8 Hrs) Temp Pulse Resp BP Pulse Ox 08/13/18 08:00 36.6 C 49 L 12 108/49 L 95 08/13/18 04:00 36.9 C 52 L 12 114/56 L 92 Intake/Output (24 Hrs) 08/12/18 08/13/18 08/14/18 05:59 05:59 06:59 Intake Total 780 Output Total 1100 3800 Balance -1100 -3020 Intake: Oral (ml) 780 Output: Urine (ml) 1100 3800 Toilet 400 3800 Urinal 700 Other: Weight 76.1 kg 73.8 kg Intake Quantity Yes Sufficient Number of Voids Toilet 4 Urinal 1 Result Diagrams: 08/12/18 03:06 08/13/18 05:14 Telemetry: Sinus bradycardia (48 bpm) Echocardiogram: Grossly normal wall motion and LV EF noted. RV at upper limits of normal (size) . Mild elevation to RVSP noted. No armando valve pathology appreciated. - Physical Exam Constitutional: WDWN, healthy appearing, no apparent distress Eyes: PERRL, EOMI Ears, Nose, Mouth, Throat: moist mucous membranes Cardiovascular: regular rate and rhythm, no murmurs, no rubs, no gallops, pulses symmetric bilat, No jugular vein distention Peripheral Pulses: 2+: dorsalis-pedis (R), dorsalis-pedis (L) Respiratory: clear to auscultate bilat, no crackles, no wheezes Gastrointestinal: normoactive bowel sounds Skin: other (trace edema noted bilaterally) Musculoskeletal: no muscular tenderness, no joint effusions Neurologic: AAOx3, CN II-XII grossly intact Psychiatric: cooperative, interactive, following commands ICD10 Worksheet Patient Problems: Problems Problem Status Onset New onset of congestive heart failure Acute Pneumonia Acute
[2018-08-13] MEDS: ENOXAPARIN 40 MG/0.4 ML SYR SC SCH (09:11)
[2018-08-13] MEDS: FUROSEMIDE 20 MG/2 ML VIAL IVP SCH ×2 (09:11→15:52)
[2018-08-13] MEDS: ATORVASTATIN CALCIUM 20 MG TAB PO SCH (09:12)
[2018-08-13] MEDS: ASPIRIN EC 81 MG TAB PO SCH (09:12)
--- NOTE | 2018-08-13 13:53 | HOSPPROG ---
Hospitalist Progress Note Assessment/Plan: Acute Right sided Congestive Heart Failure Exacerbation - Reports 3 weeks CLARK, recent b/l LE edema with hx of multivessel CAD - BNP elevated to 1850 on admission, CTA showing b/l pleural effsions R>L on admission, cardiomegaly - S/p 20 mg IVP Lasix in ED, continue diuresis with 20 mg Lasix IVP BID - Net negative 1L in past 24 hours, weight decreased 63.6 kg -> 60.1 kg - TTE c/w LVEF 60%, no wall motion abnormalities, RVSP of 40 - Recently started on B-Arben, initially Coreg then Bystolic, holding - Monitor I/O, daily weights, BMP - Cardiology following, appreciate recommendatins Multivessel CAD -Recent LHC on 06/27/2018 showing multivessel disease, medical management per patient - Not currently complaining of chest pain, Trop negative on admission - Continue home ASA, Atorvastatin - Cards following Bradycardia - HR noted to be in 40's on admission, 60-70's on previous ED visits - Recently started on B-arben by Cardiology, holding - Monitor on telemetry Bronchiectasis - Seen on CTA on admission, possibly represented SHERIN per radiology read, also noted in 2015 on CTA - Unclear if playing a role in recent CLARK, unlikely given CHF exacerbation as above - Pulmonology, Dr. Bean Katz saw patient on 07/15, does not believe symptoms are 2/2 to pulmonary process Non sustained Vtach: not symptomatic -electrolytes are ok -cont tele -cards following -holding BB FEN: Cardiac Diet, 1.5 L Fluid restriction DVT PPx: SubQ Lovenox Code: FULL Dispo: Pending clinical course, currently on IV Lasix for diuretics Subjective: Patient reports improvement in SOB and edema Objective: Vital Signs Temp Pulse Resp BP Pulse Ox 36.6 C 47 L 18 118/58 L 94 08/13/18 11:58 08/13/18 11:58 08/13/18 11:58 08/13/18 11:58 08/13/18 11:58 Laboratory Results 08/12/18 03:06 08/13/18 05:14 08/12/18 08/13/18 08/14/18 05:59 05:59 06:59 Intake Total 780 Output Total 1100 3800 Balance -1100 -3020 - Physical Exam Constitutional: no apparent distress Eyes: PERRL Ears, Nose, Mouth, Throat: moist mucous membranes Cardiovascular: regular rate and rhythym Respiratory: reduced air movement, No inspiratory crackles Gastrointestinal: soft, non-tender abdomen Skin: warm Musculoskeletal: full muscle strength Neurologic: AAOx3 Psychiatric: interacting appropriately ICD10 Worksheet Patient Problems: Problems Problem Status Onset New onset of congestive heart failure Acute Pneumonia Acute
--- NOTE | 2018-08-13 16:06 | SOAPPROG ---
SOAP Progress Note Assessment/Plan: Assessment: Volume overload/congestive heart failure Coronary artery disease History of bronchiectasis: Mild Dyspnea on exertion: Secondary to cardiac issues Plan: Continue diuresis. Plans per Cardiology. There is no evidence of an active pulmonary process at this point in time contributing to his dyspnea. I will follow up with him in the office as an outpatient. Subjective: Unchanged. Denies chest pain. Still feels somewhat short of breath. Lower extremities remain edematous. Objective: Vital Signs Temp Pulse Resp BP Pulse Ox 36.9 C 47 L 14 104/52 L 93 08/13/18 15:34 08/13/18 15:34 08/13/18 15:34 08/13/18 15:34 08/13/18 15:34 Laboratory Results 08/12/18 03:06 08/13/18 05:14 08/12/18 08/13/18 08/14/18 05:59 05:59 06:59 Intake Total 780 Output Total 1100 3800 Balance -1100 -3020 Physical Exam - Physical Exam General Appearance: alert, no apparent distress EENT: other (On room air) Neck: normal inspection Respiratory: lungs clear (Anteriorly), normal breath sounds (And excursions), rales (Few rales at bases), No rhonchi, No wheezing Cardiac/Chest: bradycardia (Sinus) Abdomen: normal bowel sounds, non-tender, soft Skin: normal color, warm/dry Extremities: normal capillary refill, pedal edema (1-2+) Neuro/Psych: No cognition abnormalities ICD10 Worksheet Patient Problems: Problems Problem Status Onset Pneumonia Acute New onset of congestive heart failure Acute
[2018-08-14] MEDS: ENOXAPARIN 40 MG/0.4 ML SYR SC SCH (09:30)
[2018-08-14] MEDS: ASPIRIN EC 81 MG TAB PO SCH (09:31)
[2018-08-14] MEDS: FUROSEMIDE 20 MG/2 ML VIAL IVP SCH (09:31)
[2018-08-14] MEDS: ATORVASTATIN CALCIUM 20 MG TAB PO SCH (09:31)
--- NOTE | 2018-08-14 09:46 | PDCARPN ---
Cardiology Progress Note Chief Complaint: No cardiovascular complaints this morning Assessment/Plan: Assessment: 08-14-18 No cardiovascular complaints this morning. Further weight loss has been noted, and there might be slightly less bilateral lower extremity edema noted. Heart rates continue to climb (without the exposure to beta blockers). Ongoing use of IV lasix (with two doses yesterday, but an unremarkable change in output with more aggressive therapy). Pulmonary has signed off from in patient, but has outpatient follow up scheduled. Ambulation yesterday seems to be improved, but the true test for the patient will be a hill at home (according to both patient and ). 08-13-18 Patient is a 77 y/o male with history of CAD ([employer] WORK[employer] of mid LAD with right to left collaterals, non critical lesions to the RCA), HLP, and bronchiectasis ( followed by pulmonary), who presented to outpatient cardiology yesterday with complaints of progressive dyspnea and lower extremity swelling - both of which worsened after an extended flight from [id number] (on ski trip). ECG without dynamic changes, but given the history, signs, and symptoms, we opted to have acute eval in the ER to rule out DVT/PE. Work up without DVT/PE noted, but BNP elevation (with noted signs) suggestive of acute CHF. Patient sent to [facility] and work up ensued. Diuresis overnight with about 2.5-3 Kg of weight lost overnight. Pulmonary saw patient yesterday (knows patient from outpatient ) and reportedly has some plans for testing today. Ongoing discussions about medical therapy (vs PCI/CT surgery) for the noted CAD. Given bradycardia that was noted, Bystolic was held. Plan: (1) ASA for life given CAD history (2) Would discontinue IV lasix in favor of PO lasix (40 mg) (3) Supplement potassium (10 meq) (4) Continue statins (with annual assessment of FLP and LFT) (5) Continue with regular and routine exercise (6) Add low dose metoprolol tartrate (12.5 mg PO QHS) for discharge (7) Would have patient seen in the outpatient setting mid week (this coming week) by cardiology (8) Patient and were in agreement with these plans. Subjective: No cardiovascular complaints Reviewed/Discussed With: family Objective: Vital Signs (8 Hrs) Temp Pulse Resp BP Pulse Ox 08/14/18 07:43 36.4 C 54 L 18 126/54 H 93 08/14/18 04:00 36.6 C 60 18 122/73 H 99 Intake/Output (24 Hrs) 08/13/18 08/14/18 08/15/18 04:59 05:59 05:59 Intake Total Output Total Balance Intake: Oral (ml) Output: Urine (ml) Toilet Other: Weight 72.8 kg Number of Voids Toilet Number of Stools Toilet 1 Result Diagrams: 08/12/18 03:06 08/14/18 05:08 Telemetry: Sinus rhythm (50-55 bpm) - Physical Exam Constitutional: WDWN, healthy appearing, no apparent distress Eyes: PERRL, EOMI Ears, Nose, Mouth, Throat: moist mucous membranes Cardiovascular: regular rate and rhythm, no murmurs, no rubs, no gallops, pulses symmetric bilat, No jugular vein distention Peripheral Pulses: 2+: dorsalis-pedis (R), dorsalis-pedis (L) Respiratory: clear to auscultate bilat, no crackles, no wheezes Gastrointestinal: normoactive bowel sounds Skin: no rashes, other (trace BLE edema is still noted) Neurologic: AAOx3, CN II-XII grossly intact Psychiatric: cooperative, interactive, following commands ICD10 Worksheet Patient Problems: Problems Problem Status Onset New onset of congestive heart failure Acute Pneumonia Acute
[2018-08-14 11:22] VITALS: BP 121/80
--- NOTE | 2018-08-14 12:11 | ASMTDCNOTE ---
Case Management Discharge Discharge Order Complete? Answers: Yes Patient to Obtain Answers: via Family Medications Transportation Arranged Answers: Family/Friends Discharge Comments Notes: Pts care discussed in rounds. Pt is getting discharged independently with outpatient follow-up as indicated. Family to transport. No CM needs identified. Date Signed: 08/14/2018 12:11 PM Electronically Signed By:MELBA Schulte
--- NOTE | 2018-08-14 12:12 | ASMTLACE ---
LACE Length of stay for Answers: 2 days current admission Acuity / Level of Answers: Yes Care: Did the patient have an inpatient admission? Comorbidities - select Answers: Coronary Artery Disease all that apply # of Emergency department Answers: 1-2 visits in the last 6 months Score: 8 Date Signed: 08/14/2018 12:11 PM Electronically Signed By:MELBA Schulte
--- NOTE | 2018-08-14 12:31 | PDDCSUM ---
Discharge Summary Discharge Summary: Date of Admission: 08/11/2018 Date of Discharge: 08/14/2018 Consults: Cardiology Procedures: TTE Followup: Cardiology, Dr. Luo and PCP Hospital Course Problem List: Acute Right sided Congestive Heart Failure Exacerbation - Reports 3 weeks CLARK, recent b/l LE edema with hx of multivessel CAD - BNP elevated to 1850 on admission, CTA showing b/l pleural effsions R>L on admission, cardiomegaly - S/p diuresis with 20 mg Lasix IVP BID, transitioned to 40 mg PO Lasix qd upon discharge - Net negative 1L in past 24 hours, weight decreased 76.1-> 72.8 kg since admission - TTE c/w LVEF 60%, no wall motion abnormalities, RVSP of 40 - Recently started on B-Arben, initially Coreg then Bystolic, held during admission, cardiology started 12.5 mg Metoprolol Succinate qHS upon discharge - Follow up with Cardiology, Dr. Luo this week Multivessel CAD -Recent LHC on 06/27/2018 showing multivessel disease - Not currently complaining of chest pain, Trop negative on admission - Continue home ASA, Atorvastatin - Cards following, will f/u with Dr. Luo this week for further evaluation and management - Metoprolol added as above, continue home ASA Bradycardia - HR noted to be in 40's on admission, 60-70's on previous ED visits - Recently started on B-arben by Cardiology, held during admission - Monitored on telemetry Bronchiectasis - Seen on CTA on admission, possibly represented SHERIN per radiology read, also noted in 2015 on CTA - Unclear if playing a role in recent CLARK, unlikely given CHF exacerbation as above - Pulmonology, Dr. Bean Katz saw patient on 07/15, does not believe symptoms are 2/2 to pulmonary process Time spent on discharge was >35 minutes with >50% of time spent on patient education and counseling.
[2018-08-14] MEDS ORDERED: METOPROLOL TARTRATE 25 MG TAB PO SCH (21:00)
[2018-08-15] MEDS ORDERED: FUROSEMIDE 40 MG TAB PO SCH (09:00)
[2018-08-15] MEDS ORDERED: POTASSIUM CL 20 MEQ/15 ML UDCUP PO SCH (09:00)
--- NOTE | 2018-08-16 17:54 | CPEKG ---
Test Reason : OPEN Blood Pressure : / mmHG Vent. Rate : 044 BPM Atrial Rate : 044 BPM P-R Int : 181 ms QRS Dur : 103 ms QT Int : 467 ms P-R-T Axes : 075 016 001 degrees QTc Int : 400 ms Sinus bradycardia Abnormal R-wave progression, early transition Sinus bradycardia is new in comparison to prior Confirmed by Ridge Macedo ([id number] on 08/16/2018 5:54:20 PM Referred By: Adi Santos Confirmed By:Ridge Macedo
== END 2018-08-14 14:34 | disposition home or self-care (01) ==
LOC: CED 11:46 → INTOOBSV 15:26 → CEDHOLD 15:26 → F2W 17:05 → UNDODISIN 08-12 12:22
PROVIDERS: ADMIT Internal Medicine; ATTEND Internal Medicine
DX: I50.811 Acute right heart failure (principal); I25.10 Atherosclerotic heart disease of native coronary artery without angina pectoris; R00.1 Bradycardia, unspecified; J47.9 Bronchiectasis, uncomplicated; J90 Pleural effusion, not elsewhere classified; E78.5 Hyperlipidemia, unspecified; Z79.82 Long term (current) use of aspirin
CPT/HCPCS: 71275; 93005; 93306; 93971; 96374; 99285; G0378; J1650; J1940; Q9967; 80048-ER; 84484-ER

== ENCOUNTER → 2018-10-29 | Outpatient (CLI) | payer OTHER | LOC: FCPNEURO 21:00 ==